=== PATIENT | female | born 2005 | race Caucasian/White ===

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

== ENCOUNTER 2024-12-28 23:49 | Emergency (ER) | payer OTHER, SELFPAY ==
[2024-12-28 23:51] VITALS: BP 153/85; PULSE 97; RESP 16; TEMP 37.1; O2SAT 97; BMI 25.4
[2024-12-29 01:00] LABS: IDNOW Serial# 55D5AD1C; Strep A Nucleic Acid Negative (Negative)
[2024-12-29 01:26] LABS: Influenza A PCR NEGATIVE (Negative); Influenza B PCR NEGATIVE (Negative); Resp Syncy Virus RNA Qual PCR NEGATIVE (Negative); SARS COV2 PCR INHOUSE NEGATIVE (Negative)
--- NOTE | 2024-12-29 02:48 | ED.GENADULT ---
HPI - General Adult General Chief complaint: Upper Respiratory Symptoms Stated complaint: pain when swallowing, white patches in throat Time Seen by Provider: 12/29/24 02:05 Source: patient Limitations: no limitations History of Present Illness ED Provider: Karen Lugo PA-C HPI narrative: 19-year-old female presents with viral syndrome x2 days. Associated sore throat, fever, chest congestion with a cough, nasal congestion with postnasal drip. No sick contacts with similar symptoms. Related Data Allergies Allergy/AdvReac Type Severity Reaction Status Date / Time No Known Allergies (No Known Allergy Verified 12/28/24 23:54 Allergies*) Review of Systems Review of Systems: Yes all other systems are reviewed and are negative Constitutional: Constitutional: Denies fatigue and Reports fever(s) ENT: Reports nasal congestion, Reports post nasal drip and Reports sore throat Cardiovascular: Cardiovascular: Denies chest pain and Denies dyspnea Respiratory: Respiratory: Reports chest congestion, Reports cough, Denies dyspnea and Denies wheezing Endocrine: Endocrine: Denies fatigue Allergic/Immunologic: Allergic/Immunologic: Denies wheezing [facility] Past Medical History Attestation statement: The following information was validated with the patient. Social History Social History Advance Directives: No Advance Directives Information Provided: No Do you have a plan to hurt others: No Plan Physical Exam ED Vital Signs: Vital Signs - 24 hr 12/28/24 23:51 Temperature 98.8 F Pulse Rate 97 Respiratory Rate 16 Blood Pressure 153/85 H Pulse Oximetry 97 Oxygen Delivery Method Room Air BMI result Body Mass Index 25.4 Const Other: Alert Orientation/consciousness: patient oriented x3 HENMT Other: Opiate erythematous without exudate, uvula midline, no swelling inferior to the jawline no sublingual fluctuance no trismus no drooling Resp Other: Lungs clear to auscultation no wheezing Cardio Other: Normal peripheral perfusion Skin Other: Warm dry no rash Neuro General: patient oriented x3, gait normal, no focal motor deficits and CN's II-XI intact bilaterally Psych Other: Calm cooperative Medical Decision Making Medical Decision Making [facility] Narrative: 19-year-old female presents with viral syndrome x2 days. Associated sore throat, fever, chest congestion with a cough, nasal congestion with postnasal drip. No sick contacts with similar symptoms. No chronic issues History: Per patient I have considered the following differential diagnoses: Viral syndrome, pneumonia, bronchitis, strep pharyngitis, [employer], RPA Plan: Viral panel and strep screen obtained from triage everything is negative. There were no exam findings concerning for RPA or [employer]PECTION SUPER[employer]OR. The patient's are clear to auscultation on exam I do not hear any basilar crackles, I do not feel chest x-ray is warranted at this time. I have independently reviewed the following tests: Labs: Viral panel negative, strep screen negative Lab Data Labs: Lab Results 12/29/24 Range/Units 00:41 Influenza Type A (PCR) NEGATIVE (Negative) Influenza Type B (PCR) NEGATIVE (Negative) RSV RNA Qual (PCR) NEGATIVE (Negative) SARS-CoV-2 RNA (RT-PCR) NEGATIVE (Negative) S. pyogenes GrpA JAVIER Negative (Negative) Discharge Plan Discharge Clinical Impression: Viral infection, Pharyngitis Patient Disposition: Home, Self-Care Instructions: Pharyngitis (ED), Viral Syndrome (ED) Additional Instructions: You were tested for influenza RSV and COVID, the viral panel was negative. You were also tested for strep throat, that was negative as well. You have yet another virus has been circulating within the community causing your symptoms. See home care instructions. Use [id number] Zyrtec, this is an antihistamine, for upper airway congestion. Use Mucinex, for lower airway congestion. Warm saltwater gargles help with throat pain. Follow up with your primary care provider as needed. For fevers and body aches you can alternate between the use of [id number] Tylenol 1000 mg taken every 8 hours, with [id number] ibuprofen 600 mg taken every 6 hours with food. Print Language: Nepalese
--- NOTE | 2024-12-29 03:02 | PC.NURSE ---
This Rn reviewed discharge instructions with pt pt verbalized understanding , no sign of distress.
[2024-12-29 03:03] VITALS: BP 110/69; PULSE 96; RESP 18; TEMP 36.4; O2SAT 98; O2SAT 99
[2024-12-29 03:05] VITALS: BP 110/69; PULSE 96; RESP 18; TEMP 36.4; O2SAT 98
== END 2024-12-29 03:06 | disposition home or self-care (01) ==
PROVIDERS: Emergency Provider Emergency Medicine
DX: B34.9 Viral infection, unspecified (principal); J02.9 Acute pharyngitis, unspecified; Z03.818 Encounter for observation for suspected exposure to other biological agents ruled out
CPT/HCPCS: 0241U; 87651; 99283; 99284